=== PATIENT | female | born 1990 | race Native Hawaiian/Other Pacific Islander ===

== ENCOUNTER 2017-09-23 03:48 | Inpatient (IN) | payer OTHER ==
--- NOTE | 2017-09-23 03:50 | ED ---
General Adult HPI - General Stated complaint: Abd pain, nausea Time Seen by Provider: 09/23/17 03:50 Source: RN notes reviewed, old records reviewed - History of Present Illness Initial comments: This is a 27-year-old female the ER for evaluation today. Patient presents to ER for evaluation of abdominal pain left-sided abdominal pain. Patient is a transfer patient patient's coming from [facility] to rule out torsion. Patient has no nausea no vomiting no fevers. She does admit to bleeding from her period. This is been going on for 5 days. Pelvic pain started about 11 AM this morning and has been persistent - Related Data Home Medications Medication Instructions Recorded Confirmed Pnv,Calcium 72/Iron/Folic Acid 1 tab PO DAILY 05/29/15 07/26/15 [ Plus Tablet] Acetaminophen Tab [Tylenol Tab] 325 mg PO Q6H 07/25/15 07/26/15 Previous Rx's Medication Instructions Recorded HYDROcodone/APAP 5-325MG [[place] 1 tab PO Q4HR PRN #30 tab 07/28/15 5-325] Ibuprofen [Motrin] 600 mg PO Q6HR PRN #30 tab 07/28/15 Allergies Allergy/AdvReac Type Severity Reaction Status Date / Time No Known Allergies Allergy Verified 09/23/17 04:03 Review of Systems ROS Statement: Those systems with pertinent positive or pertinent negative responses have been documented in the HPI. ROS Other: All systems not noted in ROS Statement are negative. Past Medical History Past Medical History: Asthma Additional Past Medical History / Comment(s): asthma, broken tooth, wisdom tooth painful, groin/ligament pain. migraines History of Any Multi-Drug Resistant Organisms: None Reported Past Surgical History: Section Additional Past Surgical History / Comment(s): c/s x 2 Past Anesthesia/Blood Transfusion Reactions: No Reported Reaction Past Psychological History: ADD/ADHD Smoking Status: Former smoker Past Alcohol Use History: None Reported Past Drug Use History: Marijuana Additional Drug Use History / Comment(s): pt currently serving in [employer] for probat violation marijuana use prior to preg - Past Family History Mother History Unknown: Yes Family Medical History: Diabetes Mellitus, Hypertension Additional Family Medical History / Comment(s): depression/anxiety General Exam General appearance: alert, in no apparent distress Head exam: Present: atraumatic, normocephalic, normal inspection Eye exam: Present: normal appearance, PERRL, EOMI. Absent: scleral icterus, conjunctival injection, periorbital swelling ENT exam: Present: normal exam, mucous membranes moist Neck exam: Present: normal inspection. Absent: tenderness, meningismus, lymphadenopathy Respiratory exam: Present: normal lung sounds bilaterally. Absent: respiratory distress, wheezes, rales, rhonchi, stridor Cardiovascular Exam: Present: regular rate, normal rhythm, normal heart sounds. Absent: systolic murmur, diastolic murmur, rubs, gallop, clicks GI/Abdominal exam: Present: soft, normal bowel sounds. Absent: distended, tenderness, guarding, rebound, rigid Extremities exam: Present: normal inspection, full ROM, normal capillary refill. Absent: tenderness, pedal edema, joint swelling, calf tenderness Back exam: Present: normal inspection Neurological exam: Present: alert, oriented X3, CN II-XII intact Psychiatric exam: Present: normal affect, normal mood Skin exam: Present: warm, dry, intact, normal color. Absent: rash Course Vital Signs 09/23/17 03:55 Temperature 98 F Pulse Rate 61 Respiratory 18 Rate Blood Pressure 111/56 O2 Sat by Pulse 18 L Oximetry - Reevaluation(s) Reevaluation #1: 09/23/17 05:56 Dr. David is paged, aware of patient and requesting repeat ultrasound Reevaluation #2: 09/23/17 05:56 Transfer paperwork is reviewed Medical Decision Making - Medical Decision Making 27 female the ER for evaluation of pelvic pain. Severe significant left-sided ovarian cyst. Patient be admitted for OB evaluation treatment - Lab Data Result diagrams: 09/23/17 04:55 09/23/17 04:55 Lab Results 09/23/17 09/23/17 09/23/17 Range/Units 04:55 04:55 04:55 WBC 8.6 (3.8-10.6) k/uL RBC 4.27 (3.80-5.40) m/uL Hgb 13.0 (11.4-16.0) gm/dL Hct 38.6 (34.0-46.0) % MCV 90.4 (80.0-100.0) fL MCH 30.5 (25.0-35.0) pg MCHC 33.8 (31.0-37.0) g/dL RDW 12.7 (11.5-15.5) % Plt Count 228 (150-450) k/uL Neutrophils % 85 % Lymphocytes % 11 % Monocytes % 3 % Eosinophils % 0 % Basophils % 0 % Neutrophils # 7.3 (1.3-7.7) k/uL Lymphocytes # 1.0 (1.0-4.8) k/uL Monocytes # 0.3 (0-1.0) k/uL Eosinophils # 0.0 (0-0.7) k/uL Basophils # 0.0 (0-0.2) k/uL PT 11.1 (9.0-12.0) sec INR 1.2 H (<1.2) APTT 23.2 (22.0-30.0) sec Sodium (137-145) mmol/L Potassium (3.5-5.1) mmol/L Chloride (98-107) mmol/L Carbon Dioxide (22-30) mmol/L Anion Gap mmol/L BUN (7-17) mg/dL Creatinine (0.52-1.04) mg/dL Est GFR (CKD-EPI)AfAm (>60 ml/min/1.73 sqM) Est GFR (CKD-EPI)NonAf (>60 ml/min/1.73 sqM) Glucose (74-99) mg/dL Calcium (8.4-10.2) mg/dL Phosphorus (2.5-4.5) mg/dL Magnesium (1.6-2.3) mg/dL Total Bilirubin (0.2-1.3) mg/dL AST (14-36) U/L ALT (9-52) U/L Alkaline Phosphatase (38-126) U/L Total Protein (6.3-8.2) g/dL Albumin (3.5-5.0) g/dL Blood Type A Positive Blood Type Recheck No Antibody Screen NEGATIVE Spec Expiration Date 09/26/2017235409/23/17 Range/Units 04:55 WBC (3.8-10.6) k/uL RBC (3.80-5.40) m/uL Hgb (11.4-16.0) gm/dL Hct (34.0-46.0) % MCV (80.0-100.0) fL MCH (25.0-35.0) pg MCHC (31.0-37.0) g/dL RDW (11.5-15.5) % Plt Count (150-450) k/uL Neutrophils % % Lymphocytes % % Monocytes % % Eosinophils % % Basophils % % Neutrophils # (1.3-7.7) k/uL Lymphocytes # (1.0-4.8) k/uL Monocytes # (0-1.0) k/uL Eosinophils # (0-0.7) k/uL Basophils # (0-0.2) k/uL PT (9.0-12.0) sec INR (<1.2) APTT (22.0-30.0) sec Sodium 141 (137-145) mmol/L Potassium 3.9 (3.5-5.1) mmol/L Chloride 108 H (98-107) mmol/L Carbon Dioxide 22 (22-30) mmol/L Anion Gap 11 mmol/L BUN 10 (7-17) mg/dL Creatinine 0.60 (0.52-1.04) mg/dL Est GFR (CKD-EPI)AfAm >90 (>60 ml/min/1.73 sqM) Est GFR (CKD-EPI)NonAf >90 (>60 ml/min/1.73 sqM) Glucose 121 H (74-99) mg/dL Calcium 8.5 (8.4-10.2) mg/dL Phosphorus 3.8 (2.5-4.5) mg/dL Magnesium 1.8 (1.6-2.3) mg/dL Total Bilirubin 0.3 (0.2-1.3) mg/dL AST 15 (14-36) U/L ALT 32 (9-52) U/L Alkaline Phosphatase 60 (38-126) U/L Total Protein 6.2 L (6.3-8.2) g/dL Albumin 3.8 (3.5-5.0) g/dL Blood Type Blood Type Recheck Antibody Screen Spec Expiration Date - Radiology Data Radiology results: report reviewed (Ultrasound pelvis shows significant ovarian cysts), image reviewed Disposition Clinical Impression: Pelvic pain, Ovarian cyst Disposition: ADMITTED IP TO THIS [facility] Condition: Good Is patient prescribed a controlled substance at d/c from ED?: No Referrals: None,Stated [Primary Care Provider] - 1-2 days
[2017-09-23] MEDS ORDERED: MORPHINE SULFATE 2 MG/ML SYRINGE IV STA (04:11)
[2017-09-23] MEDS: SODIUM CHLORIDE 0.9% 1,000 ML IV STA ×3 (04:36→21:36)
[2017-09-23 05:09] LABS: Basophils % (A) 0 %; Eosinophils % (A) 0 %; HCT 38.6 % (34.0-46.0); Lymphocytes % (A) 11 %; MCH 30.5 pg (25.0-35.0); MCHC 33.8 g/dL (31.0-37.0); MCV 90.4 fL (80.0-100.0); Mean Platelet Volume 7.1; Monocytes # (A) 0.3 k/uL (0-1.0); Monocytes % (A) 3 %; Neutrophils # (A) 7.3 k/uL (1.3-7.7); Neutrophils % (A) 85 %; Platelet Count 228 k/uL (150-450); RBC 4.27 m/uL (3.80-5.40); RDW 12.7 % (11.5-15.5); WBC 8.6 k/uL (3.8-10.6)
[2017-09-23 05:20] LABS: ALT 32 U/L (9-52); AST 15 U/L (14-36); Albumin 3.8 g/dL (3.5-5.0); Alkaline Phosphatase 60 U/L (38-126); Anion Gap 11 mmol/L; Blood Urea Nitrogen 10 mg/dL (7-17); Calcium 8.5 mg/dL (8.4-10.2); Carbon Dioxide 22 mmol/L (22-30); Chloride 108 mmol/L (98-107); Glucose 121 mg/dL (74-99); Magnesium 1.8 mg/dL (1.6-2.3); Phosphorus 3.8 mg/dL (2.5-4.5); Potassium 3.9 mmol/L (3.5-5.1); Sodium 141 mmol/L (137-145); Total Bilirubin 0.3 mg/dL (0.2-1.3); Total Protein 6.2 g/dL (6.3-8.2)
[2017-09-23 05:23] LABS: INR 1.2 (<1.2)
[2017-09-23 05:24] LABS: Partial Thromboplastin Time 23.2 sec (22.0-30.0); Prothrombin Time 11.1 sec (9.0-12.0)
--- NOTE | 2017-09-23 06:47 | P.HPOB ---
History of Present Illness H&P Date: 09/23/17 Chief Complaint: Pelvic mass with pain Patient is a 27-year-old female well-known to me. She arrived to the emergency room at [facility] on early this morning complaining of left sided abdominal and pelvic pain. She reports that her pain began yesterday morning and by 11:00 became very severe. She tried resting and was unable to find positions her comfort in the pain continued to increase. She was therefore taken to the [facility] at about 8:00 last night and an ultrasound was done there at some point showing what they thought was a 5 cm right ovarian cyst with limited blood flow. She was therefore transferred to [facility] on for gynecologic evaluation. I was notified at approximately 4:30 this morning of her evening in the emergency room and based on the description reported an ultrasound has most of the description from the prior ultrasound did not fit her symptom symptomatology. Ultrasound clear and has shown what appears to be 810 cm complex left ovarian mass predominantly cystic with some debris and one septation. Final report is still pending. There is some free fluid in the posterior cul-de-sac but this may be physiologic. Right ovary while having cyst did not appear to have any other gross findings. Both ovaries showed blood flow peripherally. On physical exam her vital signs currently are stable and she is afebrile. She is resting comfortably and was actually asleep each time I went to see her. Her abdomen is generally speaking soft there is no rebound or rigidity and only minimal guarding. The predominant location regarding is on her section scar where there is approximately 3 cm nodule I suspect may be endometriosis based on the fact that her symptoms in that area specifically are worse during her menses. She relates that she is just finishing her menses. The left lower quadrant does have a significant increase in pain over the right lower quadrant but this is only with palpation over that nodule site. In discussing her symptoms and treatment options, we discussed going to the emergency room for evaluation with open laparotomy to evaluate the ovary as well as that incision nodule this morning. As she is tired and not feeling well she would prefer to wait until tomorrow. She is aware of risks of potential torsion or other complications should this persist remain without treatment, however her symptoms did not represent a torsion at this time and due to risk of infection with previous history of Trichomonas she may actually benefit from some antibiotics and pain control prior to proceeding to the surgery. We'll plan to schedule a laparotomy tomorrow morning with possible cystectomy versus cystotomy versus oophorectomy and evaluation of her incision site. All the questions are answered for her at this time. She is overall stable this time. Assessment pelvic pain with left ovarian mass Plan exploratory laparotomy with possible cystectomy versus cystotomy versus oophorectomy as well as evaluation of pelvis in general Past Medical History Past Medical History: Asthma Additional Past Medical History / Comment(s): asthma, broken tooth, wisdom tooth painful, groin/ligament pain. migraines History of Any Multi-Drug Resistant Organisms: None Reported Past Surgical History: Section Additional Past Surgical History / Comment(s): c/s x 2 Past Anesthesia/Blood Transfusion Reactions: No Reported Reaction Past Psychological History: ADD/ADHD Smoking Status: Former smoker Past Alcohol Use History: None Reported Past Drug Use History: Marijuana Additional Drug Use History / Comment(s): pt currently serving in [employer] for probat violation marijuana use prior to preg - Past Family History Mother History Unknown: Yes Family Medical History: Diabetes Mellitus, Hypertension Additional Family Medical History / Comment(s): depression/anxiety Medications and Allergies Home Medications Medication Instructions Recorded Confirmed Type Pnv,Calcium 72/Iron/Folic Acid 1 tab PO DAILY 05/29/15 07/26/15 History [ Plus Tablet] Acetaminophen Tab [Tylenol Tab] 325 mg PO Q6H 07/25/15 07/26/15 History HYDROcodone/APAP 5-325MG [[place] 1 tab PO Q4HR PRN #30 tab 07/28/15 Rx 5-325] Ibuprofen [Motrin] 600 mg PO Q6HR PRN #30 tab 07/28/15 Rx Allergies Allergy/AdvReac Type Severity Reaction Status Date / Time No Known Allergies Allergy Verified 09/23/17 04:03 Exam Osteopathic Statement: *. No significant issues noted on an osteopathic structural exam other than those noted in the History and Physical/Consult. - Vital Signs Vital signs: Vital Signs Temp Pulse Resp BP Pulse Ox 09/23/17 03:55 98 F 61 18 111/56 18 L Intake and Output 09/22/17 09/22/17 09/23/17 14:59 22:59 06:59 Other: Weight 59.874 kg Results Result Diagrams: 09/23/17 04:55 09/23/17 04:55 Abnormal Lab Results - Last 24 Hours (Table) 09/23/17 09/23/17 Range/Units 04:55 04:55 INR 1.2 H (<1.2) Chloride 108 H (98-107) mmol/L Glucose 121 H (74-99) mg/dL Total Protein 6.2 L (6.3-8.2) g/dL
--- NOTE | 2017-09-23 06:49 | US ---
EXAMINATION TYPE: US pelvis complete transvag DATE OF EXAM: 09/23/2017 COMPARISON: US [facility] 09/23/2017 CLINICAL HISTORY: Pain. Severe left pelvic pain today; ; C sections TECHNIQUE: Transvaginal (TV) and Transabdominal (TA) . Transvaginal sonographic images were medical ly necessary to better assess the following anatomy: ovaries Date of LMP: 09/16/2017 EXAM MEASUREMENTS: Uterus: 8.1 x 4.7 x 3.9 cm Endometrial Stripe: 0.8 cm Right Ovary: 3.3 x 3.3 x 2.3 cm Left Ovary: cystic mass believed to be left ovary = 7.1 x 10.4 x 8.4cm 1. Uterus: Anteverted ; small amount of fluid is noted at C section scar. 2. Endometrium: thickness is day 8 LMP 3. Right Ovary: multiple small follicles with largest = 1.5 x 1.3 x 1.2cm 4. Left Ovary: abnormally enlarged cystic mass is believed to be left ovary with internal smaller co mplex cyst = 5.2 x 3.6 x 5.1cm and is at area of patient's pain. Spectral, color and waveform Doppler imaging shows good arterial and venous flow within the ovaries ; there is no evidence for ovarian torsion. 5. Bilateral Adnexa: free fluid in cul de sac and at right ovary 6. Posterior cul-de-sac: free fluid = 2.1 x 6.7 x 1.6 x 0.523 = 11.8ml (abnormal amount of free flu id as is > 10.0ml). IMPRESSION: There is a large complex cyst involving the left ovary. This measures more than 10 cm in length. There is no evidence of ovarian torsion. Free fluid in the cul-de-sac. Normal uterus and endo metrium. This complex cyst has not changed significantly in size compared to the [facility] enter exam of earlier today.
[2017-09-23] MEDS: MORPHINE SULFATE 2 MG/ML SYRINGE IVP PRN ×4 (07:10→21:34)
[2017-09-23] MEDS: KETOROLAC 30 MG/ML 1 ML VIAL IVP SCH ×2 (11:51→17:29)
[2017-09-23] MEDS ORDERED: MORPHINE SULFATE 2 MG/ML SYRINGE IVP PRN (12:39)
[2017-09-23 17:54] LABS: Appearance,Urine Cloudy (Clear); Bilirubin,Urine Negative (Negative); Blood,Urine Negative (Negative); Color,Urine Yellow; Glucose,Urine (UA) Negative (Negative); Ketones,Urine 3+ (Negative); Leukocyte Esterase,Urine Moderate (Negative); Mucus,Urine Moderate /hpf; Nitrite,Urine Negative (Negative); PH, Urine 6.5 (5.0-8.0); Protein,Urine 1+ (Negative); RBC,Urine 3 /hpf (0-5); Specific Gravity,Urine 1.022 (1.001-1.035); Squamous Epithelial Cell,Urine 3 /hpf (0-4); Urobilinogen,Urine <2.0 mg/dL (<2.0); WBC,Urine 20 /hpf (0-5)
[2017-09-24] MEDS: KETOROLAC 30 MG/ML 1 ML VIAL IVP SCH ×4 (00:29→18:35)
[2017-09-24] MEDS ORDERED: ceFAZolin IN SWFI 2 GM/20 ML SYRINGE IVP ONE (05:00)
[2017-09-24] MEDS ORDERED: IV FLUID CONTINUATION 1,000 ML IV ONE (06:18)
[2017-09-24] MEDS ORDERED: fentaNYL (PF) 50 MCG/ML 2 ML AMP IV ONE (06:34)
[2017-09-24] MEDS ORDERED: LACTATED RINGERS 1,000 ML IV ONE ×2 (06:40→11:00)
[2017-09-24] MEDS ORDERED: MIDAZOLAM 2 MG/2 ML VIAL IV ONE (06:49)
[2017-09-24] MEDS ORDERED: DEXAMETHASONE SOD PHOS (MDV) 100 MG/10 ML VIAL IV ONE (07:00)
[2017-09-24] MEDS ORDERED: ONDANSETRON 4 MG/2 ML VIAL IVP ONE (07:00)
--- NOTE | 2017-09-24 08:03 | P.OP ---
Date of Procedure: 09/24/17 Preoperative Diagnosis: Left lower quadrant pain enlarged ovary. Mass under skin from prior incision Postoperative Diagnosis: Same with torsed ovary Procedure(s) Performed: Exploratory laparotomy with left oophorectomy and excisional biopsy of what appears to be tissue granuloma from prior section scar Anesthesia: BRAYDON Surgeon: sIidro David Draw Operator #1: Roberto Laird Estimated Blood Loss (ml): 25 IV fluids (ml): 400 Urine output (ml): 50 Pathology: other (Left ovary and tissue granuloma) Condition: stable Disposition: floor Operative Findings: Grossly enlarged left ovary that had torsed 2 suspect this is been present for several days at minimum based on tissue degradation. Also noted on her ultrasounds both at the [facility] as well as [facility] date did show flow to to the left ovary. Right ovary was normal uterus was also normal Description of Procedure: Patient was taken to the operating suite where a general anesthetic was found be adequate. She was prepped and draped in normal sterile fashion placed in the dorsal supine position. Initially a Pfannenstiel skin incision was made through her old section scar. Once this was accomplished hard tissue granuloma was noted and grasped with a Yu and elevated, using sharp and blunt dissection as well as Bovie cautery to maintain hemostasis this mass a proximally 2 cm was excised and sent to pathology for evaluation. Once this was accomplished second knife was used to incise the fascial layer and this opening was extended laterally with Barr scissors. Superior and inferior aspect of this incision were then grasped tented up and bluntly and sharply dissected off the rectus muscles. Rectus muscles were then divided in the midline and blunt dissection through the peritoneum was made. This opening was then extended superiorly and inferiorly with good visualization of both bowel bladder. Clear fluid is noted on entry into the pelvis. Self-retaining retractor was then inserted with bladder blade. I was then packed out of the operative field patient placed in Trendelenburg position. Already was immediately recognized and elevated into the abdomen grossly did not appear to have viability, very dark purple and I tissue it was untwisted by 1 full twist to one half twist and observational next 2 minutes did not reveal any change in coloration. There was clot all the way into the infundibular pelvic ligament. Therefore Maria Del Carmen clamps were used to clamp the utero-ovarian ligament tissues clamped cut and tied following across the mesosalpinx tissues with a Maria Del Carmen clamp through the infundibular pelvic ligament tissues clamped cut and tied in ovary was sent to pathology for evaluation. Should be noted that in discussion yesterday with the patient there was a discussion that this couldn't have detorsion component to it, she declined surgery yesterday despite having her pain, as well at that time ultrasounds were saying that there was good flow of blood to the left ovary. That said based on the the way this ovary looks I suspect that is been torsed for more than just one day. Once this tissue sampling was obtained pelvis and abdomen were irrigated seeing no bleeding from the pedicles instruments were removed bowel packing was removed as was the retractor. Peritoneal layer was then identified and reapproximated with 0 Vicryl suture. Fascial layer was then closed with 0 Vicryl suture. An attempt to reapproximate the skin was made but due to how much undermining was needed to bring the skin back together in an acceptable way due to that tissue granuloma skin was just closed with ines. Sponge, lap, needle counts were all correct 2. Patient was then taken to the recovery room in stable and satisfactory condition.
[2017-09-24] MEDS ORDERED: ONDANSETRON 4 MG/2 ML VIAL IVP PRN (09:22)
[2017-09-24] MEDS ORDERED: PROMETHAZINE INJ 3.125 MG in SODIUM CHLORIDE 0.9% 50 ML IVPB PRN (09:22)
[2017-09-24] MEDS ORDERED: NALBUPHINE 10 MG/ML VIAL (10ML MDV) IV PRN (09:22)
[2017-09-24] MEDS ORDERED: NALOXONE 0.4 MG/ML 1 ML VIAL IV PRN (09:22)
[2017-09-24] MEDS ORDERED: diphenhydrAMINE 50 MG/ML 1 ML VIAL IVP PRN (09:22)
[2017-09-24] MEDS ORDERED: HYDROmorphone 0.5 MG/0.5 ML SYRINGE IVP PRN (09:22)
[2017-09-24] MEDS: SODIUM CHLORIDE 0.9% 1,000 ML IV STA (10:54)
[2017-09-24 11:15] LABS: Basophils % (A) 0 %; Eosinophils % (A) 0 %; HCT 28.4 % (34.0-46.0); Lymphocytes # (A) 1.5 k/uL (1.0-4.8); Lymphocytes % (A) 10 %; MCHC 32.5 g/dL (31.0-37.0); MCV 92.4 fL (80.0-100.0); Mean Platelet Volume 7.4; Monocytes # (A) 0.4 k/uL (0-1.0); Monocytes % (A) 3 %; Neutrophils # (A) 12.9 k/uL (1.3-7.7); Neutrophils % (A) 87 %; Platelet Count 301 k/uL (150-450); RBC 3.07 m/uL (3.80-5.40); RDW 12.7 % (11.5-15.5); WBC 14.9 k/uL (3.8-10.6)
[2017-09-24 11:20] LABS: HGB 9.2 gm/dL (11.4-16.0)
[2017-09-24] MEDS: ceFAZolin 1,000 MG in DEXTROSE/WATER 1 50ML.BAG IVPB SCH ×2 (12:45→18:33)
--- NOTE | 2017-09-24 13:07 | US ---
EXAMINATION TYPE: US pelvic limited DATE OF EXAM: 09/24/2017 COMPARISON: US CLINICAL HISTORY: hgb drop following sx. . TECHNIQUE: Transabdominal sonographic images of the pelvis were acquired. Exam done portable with Dr. David at bedside. Dr. David wanting to assess for fluid, after this was completed technologist was dismissed. Limited test. No evident fluid collection on transabdominal imaging. IMPRESSION: Limited exam, no sizable fluid collection evident.
[2017-09-24 13:09] LABS: Basophils % (A) 0 %; Eosinophils % (A) 0 %; HCT 24.5 % (34.0-46.0); Hypochromasia Slight; Lymphocytes # (A) 1.1 k/uL (1.0-4.8); Lymphocytes % (A) 8 %; MCH 29.4 pg (25.0-35.0); MCHC 31.2 g/dL (31.0-37.0); MCV 94.2 fL (80.0-100.0); Mean Platelet Volume 6.8; Monocytes # (A) 0.5 k/uL (0-1.0); Monocytes % (A) 3 %; Neutrophils # (A) 13.3 k/uL (1.3-7.7); Neutrophils % (A) 88 %; Platelet Count 272 k/uL (150-450); RDW 12.7 % (11.5-15.5); WBC 15.1 k/uL (3.8-10.6)
[2017-09-24 13:14] LABS: HGB 7.6 gm/dL (11.4-16.0)
[2017-09-24] MEDS ORDERED: ROCURONIUM BROMIDE 10 MG/ML 10 ML VIAL IV ONE (13:57)
[2017-09-24] MEDS ORDERED: SUCCINYLCHOLINE CHLORIDE 100 MG/5 ML SYR IV ONE (13:57)
[2017-09-24] MEDS ORDERED: fentaNYL (PF) 50 MCG/ML 2 ML AMP ONE (13:57)
[2017-09-24] MEDS ORDERED: MORPHINE SULFATE (PF) 0.3 MG/0.3 ML SYR ONE (13:57)
[2017-09-24] MEDS ORDERED: LIDOCAINE 1% INJ 10MG/ML (20 ML MDV) ONE (13:57)
[2017-09-24] MEDS: SODIUM CHLORIDE 0.9% 1,000 ML IV ONE (13:57)
[2017-09-24] MEDS ORDERED: PROPOFOL 10 MG/ML 20 ML VIAL IV ONE (13:57)
[2017-09-24] MEDS ORDERED: GLYCOPYRROLATE 0.2 MG/ML 2 ML VIAL ONE (13:57)
[2017-09-24] MEDS ORDERED: NEOSTIGMINE 1 MG/ML 10 ML VIAL ONE (13:57)
[2017-09-24] MEDS ORDERED: MIDAZOLAM 2 MG/2 ML VIAL ONE (13:57)
[2017-09-24 14:20] VITALS: BMI 24.5
--- NOTE | 2017-09-24 15:02 | P.OP ---
Date of Procedure: 09/24/17 Preoperative Diagnosis: Postop hemorrhage Postoperative Diagnosis: Same Procedure(s) Performed: Exploratory laparotomy with evacuation of hemoperitoneum and re-suturing of utero-ovarian ligament Anesthesia: BRAYDON Surgeon: Isidro David Estimated Blood Loss (ml): 1,500 Pathology: none sent Condition: stable Disposition: floor Operative Findings: I had been called patient to see her regarding a decreased blood pressure. I came immediately over an 18 was RE present at that initial visit her blood pressure umbilicus saw her was 80s over 50s with fluid bolus and by the time I was here she was actually alert awake and voicing no complaints. We did continue to monitor her and her blood pressures were in the 90s over 50s range following that with resolution tachycardia with heart rate in the 90s. A repeat 's stat CBC was ordered and in the interim we will monitor the patient and her blood pressures were in the high 90s over 50s and she was essentially asymptomatic no complaints of lightheadedness dizziness or other issues, and therefore we waited for the CBC. Her CBC returned with a hemoglobin of 9.2 which is significant drop from her original hemoglobin however clinically she remained stable and in fact her blood pressure was up in the 10 90s over 50s range and her pulse was in the 80s. I did order a stat ultrasound to verify that there was no blood in her abdomen or no fluid in her abdomen and I was present for that ultrasound. During ultrasound with just a little bit of repositioning and pushing on her abdomen her blood pressure again went down to the 50s over 26. Ultrasound was immediately discontinued she was placed in a flat position and another fluid bolus was initiated. Almost immediately upon making any of the changes her blood pressure again ramonita to the 80s over 50s and then again up to the 100s over 50s. She was sitting up straight voicing no complaints asking when she could eat however, I did worry another CBC which returned with a 7.6 hemoglobin and she was immediately boarded for a reexploration due to suspected bleeding from her incision or repair. Description of Procedure: Patient was taken to the operative suite where general anesthetic was found be adequate. She was prepped and draped in normal sterile fashion and placed in dorsal supine position. Those were removed and the fascia was opened with cutting the original sutures and then the peritoneum was opened and a large quantity of old blood and clot was evacuated. Once blood products were evacuated bowel was packed out of the operative field and a self retaining retractor was inserted. At this point I was able to identify the uterus and elevate the uterus towards me minimal bleeding was noted on any of the pedicles however there was a small gap where it appeared that the utero-ovarian ligament tissues pulled through likely wall she was moving her coughing and due to same suture was placed 2 [id number] sutures were used to obtain hemostasis in that area. There was some scant bleeding from the mesosalpinx-like tissue moving towards the infundibular pelvic ligament and this was reapproximated with 0 Vicryl in a running fashion. At this point we completely evacuated the abdomen and pelvis and monitored the area for a minimum of 5-7 minutes. No bleeding was noted along any of the suture lines at this point or on the pedicles. I did place one piece of Surgicel over the area as a precaution but at this time the entire area appeared hemostatic. Instruments were then removed as well as bowel packing the peritoneal layer was then identified and reapproximated with 0 Vicryl suture fascial layer was then reinserted identified and closed with 0 Vicryl suture and the skin was closed Yvette. It is noted that her fascia is weakened due to prior surgeries and likely lifestyle changes and was difficult to reapproximate but felt a good reapproximation was noted and there are or openings along the fascial line. Sponge, lap, needle counts were all correct 2. Patient was then taken to the recovery room in stable and satisfactory condition.
[2017-09-24] MEDS ORDERED: SODIUM CHLORIDE 0.9% 1,000 ML IV ONE (15:49)
[2017-09-24 20:42] LABS: HCT 25.2 % (34.0-46.0); HGB 8.2 gm/dL (11.4-16.0); MCH 29.1 pg (25.0-35.0); MCHC 32.4 g/dL (31.0-37.0); MCV 89.8 fL (80.0-100.0); Mean Platelet Volume 7.5; Platelet Count 178 k/uL (150-450); RBC 2.81 m/uL (3.80-5.40); RDW 13.2 % (11.5-15.5); WBC 9.6 k/uL (3.8-10.6)
[2017-09-25] MEDS: ceFAZolin 1,000 MG in DEXTROSE/WATER 1 50ML.BAG IVPB SCH (00:13)
[2017-09-25] MEDS: KETOROLAC 30 MG/ML 1 ML VIAL IVP SCH (00:14)
[2017-09-25] MEDS ORDERED: KETOROLAC 30 MG/ML 1 ML VIAL ONE (06:00)
[2017-09-25] MEDS ORDERED: HYDROcodone/APAP 5-325MG 1 EACH TAB ONE ×2 (06:00→10:14)
[2017-09-25] MEDS ORDERED: HYDROcodone/APAP 7.5-325MG 1 EACH TAB PO PRN (10:44)
--- NOTE | 2017-09-25 10:56 | P.PN ---
Progress Note - Text Date: 09/25/2017 Time: 07 The patient is status post, exploratory laparotomy Vital signs stable VAS: 0-10 Patient has no complaints of pain. The patient incurred some minimal itching yesterday, this itching is now subsiding. Pain meds to be managed by service.
--- NOTE | 2017-09-25 11:45 | P.PN ---
Subjective Progress Note Date: 09/25/17 Principal diagnosis: Postop day 1 Patient is doing safely better today. Her blood pressures have been fine and she voices no complaints. She is tolerating a diet we'll remove Palomo catheter was morning and ambulate and verify she is able to urinate her expectation is that she will be able to go home tomorrow, we will wait and see how she is feeling tomorrow before making final decision. Otherwise again vital signs are stable blood pressures good and she voices no points. Objective - Vital Signs Vital signs: Vital Signs Temp 98.8 F 09/25/17 00:00 Pulse 90 09/25/17 00:00 Resp 14 09/25/17 01:45 BP 97/43 09/25/17 00:00 Pulse Ox 99 09/25/17 00:00 Intake & Output 09/24/17 09/25/17 09/25/17 18:59 06:59 18:59 Intake Total 810 400 Output Total 1700 700 Balance -890 -300 Weight 62 kg Intake: IV 500 Oral 400 Blood Product 310 Rc As-1 Unit 310 [id number] Output: Urine 175 700 Estimated Blood Loss 1525 Other: Voiding Method Indwelling Catheter Indwelling Catheter - Respiratory Respiratory: bilateral: CTA - Cardiovascular Rhythm: regular - Gastrointestinal General gastrointestinal: Present: normal bowel sounds, soft - Labs CBC & Chem 7: 09/24/17 20:08 09/23/17 04:55 Labs: Abnormal Lab Results - Last 24 Hours (Table) 09/23/17 09/24/17 09/24/17 Range/Units 04:55 12:46 20:08 WBC 15.1 H (3.8-10.6) k/uL RBC 2.60 L 2.81 L (3.80-5.40) m/uL Hgb 7.6 L D 8.2 L (11.4-16.0) gm/dL Hct 24.5 L 25.2 L (34.0-46.0) % Neutrophils # 13.3 H (1.3-7.7) k/uL Crossmatch See Detail Microbiology - Last 24 Hours (Table) 09/23/17 17:38 Urine Culture - Final Urine,Voided
--- NOTE | 2017-09-25 13:55 | CDI ---
Last Revision, March 2017 Documentation Clarification Form Date: 09/25/2017 8:07:00 AM From: Malika PopePalaciosRAJAN hernandez, CCDS Admit Date: 09/24/2017 9:04:00 AM Patient Name: India Davenport Visit Number: [id number] Discharge Date: ATTENTION: The Clinical Documentation Specialists (CDI) and [facility] Coding Staff appreciate your assistance in clarifying documentation. Please respond to the clarification below the line at the bottom and electronically sign. The CDI & [facility] Coding staff will review the response and follow-up if needed. Please note: Queries are made part of the Legal Health Record. If you have any questions, please contact the author of this message via ITS. Dr. Isidro David: Patient presented with a left ovarian cyst, to OR: Exploratory laparotomy with left oophorectomy and excisional biopsy of what appears to be tissue granuloma from prior section scar. Post operative Diagnosis: Torsed ovary & tissue granuloma from prior C Section. Procedure performed: same. Patient returned to OR due to postop hemorrhage. Procedure: Exploratory laparotomy, evacuation of hemoperitoneum & re-suturing of utero-ovarian ligament. History/Risk Factors: C Sections x2, history Trichomonas. Clinical Indicators: Presented with left lower quadrant pain. Treatment: Exploratory laparomoty, antibiotics & pain control. In order to accurately reflect this patients severity of illness, please clarify if the post-operative diagnosis of postoperative hemoperitoneum is: An expected post-procedural or post-surgical condition; Integral to the procedure; Inherent to the procedure; An unexpected post-procedural or post-surgical condition related to surgical care; Other, please specify Unable to determine Please continue to document in your progress notes and discharge summary in order to capture severity of illness and risk of mortality. Include clinical findings that support your diagnosis. MTDD
[2017-09-25] MEDS: IBUPROFEN 600 MG TAB PO PRN (18:33)
[2017-09-25] MEDS ORDERED: HYDROmorphone 0.5 MG/0.5 ML SYRINGE IM PRN (20:10)
[2017-09-25] MEDS: SODIUM CHLORIDE 0.9% 1,000 ML IV ONE (21:28)
[2017-09-25] MEDS: HYDROcodone/APAP 5-325MG 1 EACH TAB PO PRN (21:29)
[2017-09-26] MEDS ORDERED: NICOTINE 14MG/24HR PATCH TRANSDERM SCH ×2 (00:18→21:00)
[2017-09-26] MEDS: HYDROcodone/APAP 5-325MG 1 EACH TAB PO PRN ×4 (02:31→21:00)
[2017-09-26] MEDS: SODIUM CHLORIDE 0.9% 1,000 ML IV ONE (07:14)
[2017-09-26] MEDS: IBUPROFEN 600 MG TAB PO PRN ×2 (07:17→15:02)
--- NOTE | 2017-09-26 08:11 | CDI ---
Last Revision, March 2017 Documentation Clarification Form Date: 09/25/2017 8:07:00 AM Resubmitted 09/26/2017 From: Malika Palacios, RAJAN, CCDS Admit Date: 09/24/2017 9:04:00 AM Patient Name: India Davenport Visit Number: [id number] Discharge Date: 09/24/2017 ATTENTION: The Clinical Documentation Specialists (CDI) and [facility] Coding Staff appreciate your assistance in clarifying documentation. Please respond to the clarification below the line at the bottom and electronically sign. The CDI & [facility] Coding staff will review the response and follow-up if needed. Please note: Queries are made part of the Legal Health Record. If you have any questions, please contact the author of this message via ITS. Dr. Isidro David: Patient presented with a left ovarian cyst, to OR: Exploratory laparotomy with left oophorectomy and excisional biopsy of what appears to be tissue granuloma from prior section scar. Post operative Diagnosis: Torsed ovary & tissue granuloma from prior C Section. Procedure performed: same. Patient returned to OR due to postop hemorrhage. Procedure: Exploratory laparotomy, evacuation of hemoperitoneum & re-suturing of utero-ovarian ligament. History/Risk Factors: C Sections x2, history Trichomonas. Clinical Indicators: Presented with left lower quadrant pain. Treatment: Exploratory laparomoty, antibiotics & pain control. In order to accurately reflect this patients severity of illness, please clarify if the post-operative diagnosis of postoperative hemoperitoneum is: An expected post-procedural or post-surgical condition; An unexpected post-procedural or post-surgical condition related to surgical care; Other, please specify Unable to determine Please continue to document in your progress notes and discharge summary in order to capture severity of illness and risk of mortality. Include clinical findings that support your diagnosis. unexpected post surgical condition with post operative hemorrhage due to one of the sutures pulling through MTDD
--- NOTE | 2017-09-26 08:17 | P.PN ---
Subjective Progress Note Date: 09/26/17 Patient is doing safely better today. Her blood pressures have been fine and she voices no complaints. She is tolerating a diet we'll remove Palomo catheter was morning and ambulate and verify she is able to urinate her expectation is that she will be able to go home tomorrow, we will wait and see how she is feeling tomorrow before making final decision. Otherwise again vital signs are stable blood pressures good and she voices no points. Seen and evaluated postop day 2. Initially on getting up and returning to bed from her the restroom she complained of some difficult and catching her breath and some midsternal pain however her lungs are clear she's pulse oxing 98-99% on room air and she is not tachycardic. After laying in bed for only a few seconds the pain dissipated and seems more likely it is either gas pain or simply due to her anemia as there is no other signs or symptoms of pulmonary embolism she has no pain back to her legs and there is no Homans sign her vital signs again are stable with blood pressure 127/72. Should symptoms in any way worsen would certainly consider doing a spiral CT to rule out PE but at this time once she was resting and distracted she did not have any chest pain at all and was not short of breath at all. Her abdomen is otherwise soft and her incision is clean dry and intact. We'll plan to repeat check her CBC today and continue slow increase in ambulation with expectation of she'll be able to go home tomorrow. Objective - Vital Signs Vital signs: Vital Signs Temp 98.2 F 09/26/17 07:40 Pulse 93 09/26/17 07:40 Resp 16 09/26/17 07:40 BP 120/72 09/26/17 07:40 Pulse Ox 98 09/26/17 07:40 Intake & Output 09/25/17 09/26/17 09/26/17 18:59 06:59 18:59 Intake Total 1160 800 Output Total 700 Balance 460 800 Intake: Oral 1160 800 Output: Urine 700 Other: Voiding Method Toilet # Voids 1 - Constitutional General appearance: Present: average body habitus, no acute distress - Respiratory Respiratory: bilateral: CTA - Cardiovascular Rhythm: regular - Gastrointestinal General gastrointestinal: Present: normal bowel sounds, soft, tenderness ( Incisional tenderness) - Integumentary Integumentary: Present: normal - Neurologic Neurologic: Present: CNII-XII intact - Labs CBC & Chem 7: 09/24/17 20:08 09/23/17 04:55 Labs: Microbiology - Last 24 Hours (Table) 09/23/17 17:38 Urine Culture - Final Urine,Voided
[2017-09-26] MEDS: FAMOTIDINE 20 MG TAB PO SCH (08:37)
[2017-09-26 08:52] LABS: Basophils % (A) 0 %; Eosinophils # (A) 0.1 k/uL (0-0.7); Eosinophils % (A) 1 %; HCT 20.8 % (34.0-46.0); Lymphocytes % (A) 37 %; MCH 29.7 pg (25.0-35.0); MCHC 32.8 g/dL (31.0-37.0); MCV 90.5 fL (80.0-100.0); Mean Platelet Volume 7.2; Monocytes # (A) 0.3 k/uL (0-1.0); Monocytes % (A) 5 %; Neutrophils % (A) 55 %; Platelet Count 164 k/uL (150-450); RDW 13.3 % (11.5-15.5); WBC 5.5 k/uL (3.8-10.6)
[2017-09-26 08:54] LABS: HGB 6.8 gm/dL (11.4-16.0)
[2017-09-26] MEDS: SENNOSIDES 8.6 MG TAB PO SCH ×2 (12:23→21:05)
[2017-09-27] MEDS: HYDROcodone/APAP 5-325MG 1 EACH TAB PO PRN (04:15)
[2017-09-27 07:38] VITALS: BP 123/80; PULSE 85; RESP 18; TEMP 98.5
[2017-09-27] MEDS: IBUPROFEN 600 MG TAB PO PRN (07:48)
[2017-09-27] MEDS: FAMOTIDINE 20 MG TAB PO SCH (08:08)
[2017-09-27] MEDS: SENNOSIDES 8.6 MG TAB PO SCH (08:08)
--- NOTE | 2017-10-22 16:31 | P.DS ---
Providers Date of admission: 09/24/17 09:04 Expected date of discharge: 09/27/17 Attending physician: Isidro David Primary care physician: Stated None Hospital Course: Patient was discharged home postoperative day 4 following an exploratory laparotomy for a an enlarged left ovary. During the process of her postop timeframe on postop day 0 she began having hypertensive episode and was taken back surgery where a large quantity of blood was noted to be in her abdomen and she had blood loss anemia from same. She did receive 2 units of packed red blood cells during this process. Once bleeding was controlled and she was sent back from the operating room to the floor she recovered in and 4 normal condition. Over the following few days she slowly improved and was ambulating and voiding and tolerating her diet prior to her discharge. Her vital signs at that time were stable and she was afebrile. Heart was regular and lungs were clear. Abdomen soft nontender. Incision was clean dry and intact. Assessment postop day 4. Plan discharged home follow up with me in 1 week. She will have repeat blood studies done to verify stability of her anemia, but overall her anemia has been stable since returning from the operating room. Pain medication prescription was also provided and discharge instructions thoroughly reviewed. She was also to be taking iron at home. Patient Condition at Discharge: Stable Plan - Discharge Summary Discharge Rx Participant: No New Discharge Prescriptions: New Docusate [Colace] 100 mg PO BID #60 capsule HYDROcodone/APAP 5-325MG [[place] 5-325] 2 each PO Q4HR PRN #30 tab PRN Reason: Moderate Pain Ibuprofen [Motrin] 600 mg PO Q6HR PRN #30 tab PRN Reason: MODERATE PAIN Discharge Medication List Docusate [Colace] 100 mg PO BID #60 capsule 09/27/17 [Rx] HYDROcodone/APAP 5-325MG [[place] 5-325] 2 each PO Q4HR PRN #30 tab 09/27/17 [Rx] Ibuprofen [Motrin] 600 mg PO Q6HR PRN #30 tab 09/27/17 [Rx] Follow up Appointment(s)/Referral(s): Isidro David DO [Doctor of Osteopathic Medicine] - 09/30/17 1:45 pm None,Stated [Primary Care Provider] - 1-2 days Activity/Diet/Wound Care/Special Instructions: regular diet as tolerated, drink fluids May shower, no tub baths or soaks. NOTHING vaginally until ok with (no intercourse, no tampons.etc) Call office for any fever, chills, increased pain not controlled by pain meds, increased redness or discolored drainage from incision site or any concerns. Be up and moving as tolerated to promote bowel activity. no strenuous activity, no heavy lifting about a milk jug. Return to work when ok with Last received Motrin at 0800 Last received [place] at 0415 Discharge Disposition: HOME SELF-CARE
== END 2017-09-27 11:10 | disposition home or self-care (01) | DRG 742 ==
LOC: EC 03:48 → 6PED 06:49 → OBSVTOIN 09-24 09:04
PROVIDERS: ADMIT Obstetrics & Gynecology; ATTEND Obstetrics & Gynecology
PROC: 30233N1 Transfusion of Nonautologous Red Blood Cells into Peripheral Vein, Percutaneous Approach (ICD-10-PCS; 2017-09-24)
PROC: 0JBC0ZX Excision of Pelvic Region Subcutaneous Tissue and Fascia, Open Approach, Diagnostic (ICD-10-PCS; 2017-09-24)
PROC: 0W3G0ZZ Control Bleeding in Peritoneal Cavity, Open Approach (ICD-10-PCS; 2017-09-24)
PROC: 0UT10ZZ Resection of Left Ovary, Open Approach (ICD-10-PCS; principal; 2017-09-24 07:00)
DX: N83.512 Torsion of left ovary and ovarian pedicle (principal); K66.1 Hemoperitoneum; N99.820 Postprocedural hemorrhage of a genitourinary system organ or structure following a genitourinary system procedure; D62 Acute posthemorrhagic anemia; F90.9 Attention-deficit hyperactivity disorder, unspecified type; J45.909 Unspecified asthma, uncomplicated; S02.5XXA Fracture of tooth (traumatic), initial encounter for closed fracture; G43.909 Migraine, unspecified, not intractable, without status migrainosus; R00.0 Tachycardia, unspecified; R11.0 Nausea; F17.210 Nicotine dependence, cigarettes, uncomplicated; Z83.3 Family history of diabetes mellitus; Z82.49 Family history of ischemic heart disease and other diseases of the circulatory system; Z98.891 History of uterine scar from previous surgery; Z81.8 Family history of other mental and behavioral disorders; Z79.899 Other long term (current) drug therapy; Z87.42 Personal history of other diseases of the female genital tract; Z86.19 Personal history of other infectious and parasitic diseases; Z98.890 Other specified postprocedural states
CPT/HCPCS: 36415; 76830; 76856; 76857; 80053; 81001; 81025; 83735; 84100; 85025; 85027; 85610; 85730; 86850; 86900; 86901; 86920; 87086; 88305; 93975; 94760; 96361; 96374; 96376; 99285